=== PATIENT | male | born 1965 | race American Indian/Alaskan Native ===

== ENCOUNTER 2021-05-30 18:46 | Inpatient (IN) | payer MEDICAID ==
[2021-05-30] MEDS ORDERED: SODIUM CHLORIDE 0.9% 1000 ML 1,000 ML IV ONE (19:40)
--- NOTE | 2021-05-30 19:49 | Emergency Department Report ---
HPI - General Chief Complaint: Altered Mental Status Time Seen by Provider: 05/30/21 19:23 - HPI HPI: This is a 56-year-old male who is unknown to myself in this emergency department who presents to the emergency department for evaluation of altered mental status. This patient is a "adams of the state" secondary to some type of psychiatric history and the guardian, Gina, says that she thinks he also has some level of mental retardation. However, up to 2 weeks ago the patient was ambulatory and conversive and able to take care of all of his ADLs. The patient started having a change in his mental status and was sent to [facility] for evaluation. Some paperwork from [facility] has a problem list that includes sepsis, colitis, bladder infection, acute kidney injury, hypocalcemia, urinary retention, hypokalemia. The patient was discharged today from that hospital and was supposed to go to [facility]. However, it sounds like there was a miscommunication involving the patient's medical status and current abilities as that is a facility for assisted living or partial care, and the patient requires total care. He is currently AAO x1. ED Past Medical Hx - Social History Smoking Status: Unknown if ever smoked ED Review of Systems ROS: Stated complaint: MEDICAL EVAL Other details as noted in HPI Comment: Unobtainable due to pts medical conditions Physical Exam - Physical Exam Vital Signs: Vital Signs 05/30/21 05/30/21 05/30/21 19:11 19:16 19:24 Temperature 99.1 F Pulse Rate 107 H 106 H 104 H Respiratory 17 20 17 Rate Blood Pressure 138/82 138/82 Blood Pressure 138/82 [Left] O2 Sat by Pulse 94 94 Oximetry 05/30/21 05/30/21 19:30 19:36 Temperature 98.3 F Pulse Rate 101 H 101 H Respiratory 17 16 Rate Blood Pressure 151/85 Blood Pressure 151/85 [Left] O2 Sat by Pulse 94 95 Oximetry Physical Exam: GENERAL: The patient is ill-appearing. HENT: Normocephalic. Atraumatic. Patient has moist mucous membranes. EYES: Extraocular motions are intact. NECK: Supple. Trachea is midline. CHEST/LUNGS: Clear to auscultation. There is no respiratory distress noted. HEART/CARDIOVASCULAR: Regular. There is no tachycardia. There is no murmur. ABDOMEN: Abdomen is soft, nontender. Patient has normal bowel sounds. There is no abdominal distention. SKIN: Skin is warm and dry. NEURO: Patient is awake and cooperative, but confused. AAO x1 to name only. Follows commands. Withdraws from painful stimuli. MUSCULOSKELETAL: There is no tenderness or deformity. : Brower catheter in place. ED Course Vital Signs 05/30/21 05/30/21 05/30/21 19:11 19:16 19:24 Temperature 99.1 F Pulse Rate 107 H 106 H 104 H Respiratory 17 20 17 Rate Blood Pressure 138/82 138/82 Blood Pressure 138/82 [Left] O2 Sat by Pulse 94 94 Oximetry 05/30/21 05/30/21 19:30 19:36 Temperature 98.3 F Pulse Rate 101 H 101 H Respiratory 17 16 Rate Blood Pressure 151/85 Blood Pressure 151/85 [Left] O2 Sat by Pulse 94 95 Oximetry ED Medical Decision Making - Lab Data Result diagrams: 05/30/21 19:51 05/30/21 19:51 Lab Results 05/30/21 05/30/21 05/30/21 Range/Units 19:51 19:51 19:51 WBC 3.5 L (4.5-11.0) K/mm3 RBC 3.21 L (3.65-5.03) M/mm3 Hgb 9.6 L (11.8-15.2) gm/dl Hct 28.4 L (35.5-45.6) % MCV 88 (84-94) fl MCH 30 (28-32) pg MCHC 34 (32-34) % RDW 18.9 H (13.2-15.2) % Plt Count 161 (140-440) K/mm3 Lymph % (Auto) 32.5 (13.4-35.0) % [place] % (Auto) 7.4 H (0.0-7.3) % Eos % (Auto) 0.0 (0.0-4.3) % Baso % (Auto) 1.6 (0.0-1.8) % Lymph # (Auto) 1.1 L (1.2-5.4) K/mm3 [place] # (Auto) 0.3 (0.0-0.8) K/mm3 Eos # (Auto) 0.0 (0.0-0.4) K/mm3 Baso # (Auto) 0.1 (0.0-0.1) K/mm3 Seg Neutrophils % 58.5 (40.0-70.0) % Seg Neutrophils # 2.0 (1.8-7.7) K/mm3 PT 13.4 (12.2-14.9) Sec. INR 0.97 (0.87-1.13) Sodium 138 (137-145) mmol/L Potassium 3.0 L (3.6-5.0) mmol/L Chloride 100.6 (98-107) mmol/L Carbon Dioxide 33 H (22-30) mmol/L Anion Gap 7 mmol/L BUN 8 L (9-20) mg/dL Creatinine 0.2 L (0.8-1.3) mg/dL Estimated GFR > 60 ml/min BUN/Creatinine Ratio 40 % Glucose 107 H (75-100) mg/dL Lactic Acid (0.7-2.0) mmol/L Calcium 7.9 L (8.4-10.2) mg/dL Total Bilirubin 0.20 (0.1-1.2) mg/dL AST 21 (5-40) units/L ALT 28 (7-56) units/L Alkaline Phosphatase 60 (35-129) units/L Ammonia (25-60) umol/L Total Creatine Kinase 33 L (55-170) units/L Troponin T < 0.010 (0.00-0.029) ng/mL NT-Pro-B Natriuret Pep (0-900) pg/mL Total Protein 4.7 L (6.3-8.2) g/dL Albumin 2.1 L (3.9-5) g/dL Albumin/Globulin Ratio 0.8 % TSH (0.270-4.200) mlU/mL Plasma/Serum Alcohol (0-0.07) % 05/30/21 05/30/21 05/30/21 Range/Units 19:51 19:51 19:51 WBC (4.5-11.0) K/mm3 RBC (3.65-5.03) M/mm3 Hgb (11.8-15.2) gm/dl Hct (35.5-45.6) % MCV (84-94) fl MCH (28-32) pg MCHC (32-34) % RDW (13.2-15.2) % Plt Count (140-440) K/mm3 Lymph % (Auto) (13.4-35.0) % [place] % (Auto) (0.0-7.3) % Eos % (Auto) (0.0-4.3) % Baso % (Auto) (0.0-1.8) % Lymph # (Auto) (1.2-5.4) K/mm3 [place] # (Auto) (0.0-0.8) K/mm3 Eos # (Auto) (0.0-0.4) K/mm3 Baso # (Auto) (0.0-0.1) K/mm3 Seg Neutrophils % (40.0-70.0) % Seg Neutrophils # (1.8-7.7) K/mm3 PT (12.2-14.9) Sec. INR (0.87-1.13) Sodium (137-145) mmol/L Potassium (3.6-5.0) mmol/L Chloride (98-107) mmol/L Carbon Dioxide (22-30) mmol/L Anion Gap mmol/L BUN (9-20) mg/dL Creatinine (0.8-1.3) mg/dL Estimated GFR ml/min BUN/Creatinine Ratio % Glucose (75-100) mg/dL Lactic Acid 0.50 L (0.7-2.0) mmol/L Calcium (8.4-10.2) mg/dL Total Bilirubin (0.1-1.2) mg/dL AST (5-40) units/L ALT (7-56) units/L Alkaline Phosphatase (35-129) units/L Ammonia 34.0 (25-60) umol/L Total Creatine Kinase (55-170) units/L Troponin T (0.00-0.029) ng/mL NT-Pro-B Natriuret Pep (0-900) pg/mL Total Protein (6.3-8.2) g/dL Albumin (3.9-5) g/dL Albumin/Globulin Ratio % TSH 23.490 H (0.270-4.200) mlU/mL Plasma/Serum Alcohol (0-0.07) % 05/30/21 05/30/21 Range/Units 19:51 19:51 WBC (4.5-11.0) K/mm3 RBC (3.65-5.03) M/mm3 Hgb (11.8-15.2) gm/dl Hct (35.5-45.6) % MCV (84-94) fl MCH (28-32) pg MCHC (32-34) % RDW (13.2-15.2) % Plt Count (140-440) K/mm3 Lymph % (Auto) (13.4-35.0) % [place] % (Auto) (0.0-7.3) % Eos % (Auto) (0.0-4.3) % Baso % (Auto) (0.0-1.8) % Lymph # (Auto) (1.2-5.4) K/mm3 [place] # (Auto) (0.0-0.8) K/mm3 Eos # (Auto) (0.0-0.4) K/mm3 Baso # (Auto) (0.0-0.1) K/mm3 Seg Neutrophils % (40.0-70.0) % Seg Neutrophils # (1.8-7.7) K/mm3 PT (12.2-14.9) Sec. INR (0.87-1.13) Sodium (137-145) mmol/L Potassium (3.6-5.0) mmol/L Chloride (98-107) mmol/L Carbon Dioxide (22-30) mmol/L Anion Gap mmol/L BUN (9-20) mg/dL Creatinine (0.8-1.3) mg/dL Estimated GFR ml/min BUN/Creatinine Ratio % Glucose (75-100) mg/dL Lactic Acid (0.7-2.0) mmol/L Calcium (8.4-10.2) mg/dL Total Bilirubin (0.1-1.2) mg/dL AST (5-40) units/L ALT (7-56) units/L Alkaline Phosphatase (35-129) units/L Ammonia (25-60) umol/L Total Creatine Kinase (55-170) units/L Troponin T (0.00-0.029) ng/mL NT-Pro-B Natriuret Pep 185.5 (0-900) pg/mL Total Protein (6.3-8.2) g/dL Albumin (3.9-5) g/dL Albumin/Globulin Ratio % TSH (0.270-4.200) mlU/mL Plasma/Serum Alcohol < 0.01 (0-0.07) % - Radiology Data Radiology results: report reviewed CHEST 1 VIEW INDICATION / CLINICAL INFORMATION: Altered mental status. FINDINGS: SUPPORT DEVICES: None. HEART / MEDIASTINUM: No significant abnormality. LUNGS / PLEURA: Mild interstitial edema with small pleural effusions. NONENHANCED CT SCAN OF THE HEAD: INDICATION / CLINICAL INFORMATION: 56 years Male; Altered mental status. TECHNIQUE: Routine CT head without contrast. All CT scans at this location are performed using CT dose reduction for ALARA by means of automated exposure control. COMPARISON: None. FINDINGS: BRAIN / INTRACRANIAL CONTENTS: No acute hemorrhage, mass effect, midline shift, hydrocephalus, or acute, large territorial infarct. No chronic infarct or focal atrophy. Normal brain volume and ventricular/sulcal size for age. No significant white matter abnormality. CRANIOCERVICAL JUNCTION: No significant abnormality. ORBITS: No significant abnormality of visualized orbits. SINUSES / MASTOIDS: No significant abnormality of the visualized paranasal sinuses or mastoid air cells. ADDITIONAL FINDINGS: None. IMPRESSION: No focal parenchymal lesion - Medical Decision Making This patient presents to the emergency department after he was discharged from another hospital and was sent to an adult care facility. However, this adult care facility is not capable of taking care of this patient as he needs total care at this time. After speaking with the patient's guardian, this is a change in the patient's mentation and ability from about 2 weeks ago. On examination today the patient is confused, AAO x1, to name only. However the patient does answer questions, follows some commands. CT scan of the head without contrast did not show any hemorrhage, large vessel occlusion, or any other acute process. Chest x-ray shows some mild pleural effusion and interstitial edema. The patient's labs show some anemia with a hemoglobin of about 9.5, hypokalemia, hypothyroidism. Patient will be admitted to the hospital for further evaluation and treatment of his accepted for admission by the hospitalist, Dr. Woodson. Critical Care Time: No Critical care attestation.: If time is entered above; I have spent that time in minutes in the direct care of this critically ill patient, excluding procedure time. ED Disposition Clinical Impression: Encephalopathy acute, Hypokalemia Altered mental status Qualifiers: Altered mental status type: unspecified Qualified Code(s): R41.82 - Altered mental status, unspecified Hypothyroid Qualifiers: Hypothyroidism type: unspecified Qualified Code(s): E03.9 - Hypothyroidism, unspecified Disposition: DC-09 OP ADMIT IP TO THIS HOSP Is pt being admited?: Yes Condition: Serious Time of Disposition: 21:38
[2021-05-30 20:01] LABS: Basophils # (Auto) 0.1 K/mm3 (0.0-0.1); Basophils % (Auto) 1.6 % (0.0-1.8); Hematocrit 28.4 % (35.5-45.6); Hemoglobin 9.6 gm/dl (11.8-15.2); Lymphocytes # (Auto) 1.1 K/mm3 (1.2-5.4); Lymphocytes % (Auto) 32.5 % (13.4-35.0); Mean Corpuscular HGB Conc 34 % (32-34); Mean Corpuscular Volume 88 fl (84-94); Monocytes # (Auto) 0.3 K/mm3 (0.0-0.8); Monocytes % (Auto) 7.4 % (0.0-7.3); Platelet Count 161 K/mm3 (140-440); Red Blood Count 3.21 M/mm3 (3.65-5.03); Red Cell Distribution Width 18.9 % (13.2-15.2)
--- NOTE | 2021-05-30 20:08 | XRay Report ---
CHEST 1 VIEW INDICATION / CLINICAL INFORMATION: Altered mental status. FINDINGS: SUPPORT DEVICES: None. HEART / MEDIASTINUM: No significant abnormality. LUNGS / PLEURA: Mild interstitial edema with small pleural effusions. Signer Name: Vadim Boyer MD Signed: 05/30/2021 8:03 PM Workstation Name: [id number]
[2021-05-30 20:12] LABS: INR 0.97 (0.87-1.13)
[2021-05-30 20:28] LABS: Alanine Aminotransferase 28 units/L (7-56); Albumin 2.1 g/dL (3.9-5); Blood Urea Nitrogen 8 mg/dL (9-20); Calcium 7.9 mg/dL (8.4-10.2); Hemolysis Index 2
[2021-05-30 20:29] LABS: BUN/Creatinine Ratio 40
--- NOTE | 2021-05-30 20:54 | Cat Scan Report ---
NONENHANCED CT SCAN OF THE HEAD: INDICATION / CLINICAL INFORMATION: 56 years Male; Altered mental status. TECHNIQUE: Routine CT head without contrast. All CT scans at this location are performed using CT dos e reduction for ALARA by means of automated exposure control. COMPARISON: None. FINDINGS: BRAIN / INTRACRANIAL CONTENTS: No acute hemorrhage, mass effect, midline shift, hydrocephalus, or acu te, large territorial infarct. No chronic infarct or focal atrophy. Normal brain volume and ventricul ar/sulcal size for age. No significant white matter abnormality. CRANIOCERVICAL JUNCTION: No significant abnormality. ORBITS: No significant abnormality of visualized orbits. SINUSES / MASTOIDS: No significant abnormality of the visualized paranasal sinuses or mastoid air giovanni ls. ADDITIONAL FINDINGS: None. IMPRESSION: No focal parenchymal lesion Signer Name: Sanchez Bowie MD Signed: 05/30/2021 8:49 PM Workstation Name: [id number]
[2021-05-30] MEDS ORDERED: ONDANSETRON 4 MG/2 ML INJ IV PRN ×2 (21:46→21:55)
[2021-05-30] MEDS ORDERED: HYDROmorphone 1 MG/1 ML INJ IV PRN (21:55)
[2021-05-30] MEDS ORDERED: ACETAMINOPHEN 325 MG TAB PO PRN (21:55)
[2021-05-30] MEDS ORDERED: oxyCODONE /ACETAMINOPHEN 5-325MG TAB PO PRN (21:55)
[2021-05-30] MEDS: POTASSIUM CHLORIDE 10 MEQ 10 MEQ/100 ML BAG IV SCH (21:58)
--- NOTE | 2021-05-30 22:02 | History and Physical Report ---
History of Present Illness Date of examination: 05/30/21 Date of admission: 05/30/2021 Chief complaint: Altered mental status History of present illness: 56-year-old male with unknown past medical history was brought to the emergency room because of altered mental status. This patient is a "[place]ams of the state" secondary to some type of psychiatric history and the guardian, Gina, says that she thinks he also has some level of mental retardation. However, up to 2 weeks ago the patient was ambulatory and conversive and able to take care of all of his ADLs. The patient started having a change in his mental status and was sent to [facility] for evaluation. Some paperwork from [facility] has a problem list that includes sepsis, colitis, bladder infection, acute kidney injury, hypocalcemia, urinary retention, hypokalemia. The patient was discharged today from that hospital and was supposed to go to [facility]. However, it sounds like there was a miscommunication involving the patient's medical status and current abilities as that is a facility for assisted living or partial care, and the patient requires total care. He is cu rrently AAO x1. In the emergency room initial CT scan of the head shows no focal parenchymal lesion. Also potassium is 3.0, TSH 23.490 Past History Past Medical History: other (Psychiatric history) Medications and Allergies Allergies Allergy/AdvReac Type Severity Reaction Status Date / Time No Known Allergies Allergy Unverified 05/30/21 21:07 Active Meds: Active Medications Acetaminophen (Acetaminophen 325 Mg Tab) 650 mg PO Q4H PRN PRN Reason: Pain MILD(1-3)/Fever >100.5/[place] Acetaminophen (Acetaminophen 325 Mg Tab) 650 mg PO Q4H PRN PRN Reason: Pain MILD(1-3)/Fever >100.5/[place] Heparin Sodium (Porcine) (Heparin 5,000 Unit/1 Ml Vial) 5,000 unit SUB-Q Q12HR NEETU Hydromorphone HCl (Hydromorphone 1 Mg/1 Ml Inj) 0.5 mg IV Q3H PRN PRN Reason: Pain , Severe (7-10) Sodium Chloride (Nacl 0.9% 1000 Ml) 1,000 mls @ 125 mls/hr IV ONCE ONE Stop: 05/31/21 03:39 Last Admin: 05/30/21 20:53 Dose: 125 mls/hr Documented by: Potassium Chloride (Kcl 10meq/100ml) 10 meq in 100 mls @ 100 mls/hr IV Q1H NEETU Stop: 05/30/21 23:59 Ondansetron HCl (Ondansetron 4 Mg/2 Ml Inj) 4 mg IV Q8H PRN PRN Reason: Nausea And Vomiting Ondansetron HCl (Ondansetron 4 Mg/2 Ml Inj) 4 mg IV Q8H PRN PRN Reason: Nausea And Vomiting Oxycodone/Acetaminophen (Oxycodone /Acetaminophen 5-325mg Tab) 1 tab PO Q6H PRN PRN Reason: Pain, Moderate (4-6) Sodium Chloride (Sodium Chloride 0.9% 10 Ml Flush Syringe) 10 ml IV BID NEETU Sodium Chloride (Sodium Chloride 0.9% 10 Ml Flush Syringe) 10 ml IV PRN PRN PRN Reason: LINE FLUSH Sodium Chloride (Sodium Chloride 0.9% 10 Ml Flush Syringe) 10 ml IV BID NEETU Sodium Chloride (Sodium Chloride 0.9% 10 Ml Flush Syringe) 10 ml IV PRN PRN PRN Reason: LINE FLUSH Sodium Chloride (Sodium Chloride 0.9% 10 Ml Flush Syringe) 10 ml IV BID NEETU Sodium Chloride (Sodium Chloride 0.9% 10 Ml Flush Syringe) 10 ml IV PRN PRN PRN Reason: LINE FLUSH Review of Systems Neurological: change in mentation Exam - Constitutional Vitals: Temp Pulse Resp BP Pulse Ox 98.3 F 103 H 24 148/90 93 05/30/21 19:36 05/30/21 20:46 05/30/21 20:46 05/30/21 20:46 05/30/21 20:46 General appearance: Present: no acute distress, well-nourished - EENT Eyes: Present: PERRL ENT: hearing intact, clear oral mucosa - Neck Neck: Present: supple, normal ROM - Respiratory Respiratory effort: normal Respiratory: bilateral: CTA - Cardiovascular Heart Sounds: Present: S1 & S2. Absent: rub, click - Extremities Extremities: pulses symmetrical, No edema Peripheral Pulses: within normal limits - Abdominal General gastrointestinal: Present: soft, non-tender, non-distended, normal bowel sounds Male genitourinary: Present: normal - Integumentary Integumentary: Present: clear, warm, dry - Musculoskeletal Musculoskeletal: gait normal, strength equal bilaterally - Psychiatric Psychiatric: appropriate mood/affect - Neurologic Neurologic: CNII-XII intact, moves all extremities, other (Patient is AAO x1) HEART Score - HEART Score Troponin: Troponin T < 0.010 ng/mL (0.00-0.029) 05/30/21 19:51 Results - Labs CBC & Chem 7: 05/30/21 19:51 05/30/21 19:51 Labs: Laboratory Last Values WBC 3.5 K/mm3 (4.5-11.0) L 05/30/21 19:51 RBC 3.21 M/mm3 (3.65-5.03) L 05/30/21 19:51 Hgb 9.6 gm/dl (11.8-15.2) L 05/30/21 19:51 Hct 28.4 % (35.5-45.6) L 05/30/21 19:51 MCV 88 fl (84-94) 05/30/21 19:51 MCH 30 pg (28-32) 05/30/21 19:51 MCHC 34 % (32-34) 05/30/21 19:51 RDW 18.9 % (13.2-15.2) H 05/30/21 19:51 Plt Count 161 K/mm3 (140-440) 05/30/21 19:51 Lymph % (Auto) 32.5 % (13.4-35.0) 05/30/21 19:51 [place] % (Auto) 7.4 % (0.0-7.3) H 05/30/21 19:51 Eos % (Auto) 0.0 % (0.0-4.3) 05/30/21 19:51 Baso % (Auto) 1.6 % (0.0-1.8) 05/30/21 19:51 Lymph # (Auto) 1.1 K/mm3 (1.2-5.4) L 05/30/21 19:51 [place] # (Auto) 0.3 K/mm3 (0.0-0.8) 05/30/21 19:51 Eos # (Auto) 0.0 K/mm3 (0.0-0.4) 05/30/21 19:51 Baso # (Auto) 0.1 K/mm3 (0.0-0.1) 05/30/21 19:51 Seg Neutrophils % 58.5 % (40.0-70.0) 05/30/21 19:51 Seg Neutrophils # 2.0 K/mm3 (1.8-7.7) 05/30/21 19:51 PT 13.4 Sec. (12.2-14.9) 05/30/21 19:51 INR 0.97 (0.87-1.13) 05/30/21 19:51 Sodium 138 mmol/L (137-145) 05/30/21 19:51 Potassium 3.0 mmol/L (3.6-5.0) L 05/30/21 19:51 Chloride 100.6 mmol/L (98-107) 05/30/21 19:51 Carbon Dioxide 33 mmol/L (22-30) H 05/30/21 19:51 Anion Gap 7 mmol/L 05/30/21 19:51 BUN 8 mg/dL (9-20) L 05/30/21 19:51 Creatinine 0.2 mg/dL (0.8-1.3) L 05/30/21 19:51 Estimated GFR > 60 ml/min 05/30/21 19:51 BUN/Creatinine Ratio 40 % 05/30/21 19:51 Glucose 107 mg/dL (75-100) H 05/30/21 19:51 Lactic Acid 0.50 mmol/L (0.7-2.0) L 05/30/21 19:51 Calcium 7.9 mg/dL (8.4-10.2) L 05/30/21 19:51 Total Bilirubin 0.20 mg/dL (0.1-1.2) 05/30/21 19:51 AST 21 units/L (5-40) 05/30/21 19:51 ALT 28 units/L (7-56) 05/30/21 19:51 Alkaline Phosphatase 60 units/L (35-129) 05/30/21 19:51 Ammonia 34.0 umol/L (25-60) 05/30/21 19:51 Total Creatine Kinase 33 units/L (55-170) L 05/30/21 19:51 Troponin T < 0.010 ng/mL (0.00-0.029) 05/30/21 19:51 NT-Pro-B Natriuret Pep 185.5 pg/mL (0-900) 05/30/21 19:51 Total Protein 4.7 g/dL (6.3-8.2) L 05/30/21 19:51 Albumin 2.1 g/dL (3.9-5) L 05/30/21 19:51 Albumin/Globulin Ratio 0.8 % 05/30/21 19:51 TSH 23.490 mlU/mL (0.270-4.200) H 05/30/21 19:51 Plasma/Serum Alcohol < 0.01 % (0-0.07) 05/30/21 19:51 - Imaging and Cardiology Chest x-ray: report reviewed CT Scan - head: report reviewed Assessment and Plan VTE prophylaxis?: Chemical Plan of care discussed with patient/family: Yes - Patient Problems (1) Acute metabolic encephalopathy Status: Acute Plan to address problem: Admit the patient to the medical floor telemetry. Put the patient on cardiac diet. Oxygen via nasal catheter per minute. DuoNeb by nebulizer every 4 hours as needed. We will monitor the patient closely. emu farm worker evaluation for placement and discharge planning (2) Hypokalemia Status: Acute Plan to address problem: Potassium 40 mEq every 4 hours x2 dose. Recheck BMP in the morning (3) Hypothyroid Status: Acute Plan to address problem: Will start Synthroid 25 mcg p.o. daily. We will monitor the patient closely. Outpatient follow-up with endocrinology (4) DVT prophylaxis Status: Acute Plan to address problem: Heparin 5000 units subcu every 8 hours for DVT prophylaxis. Pepcid 20 mg p.o. twice daily for GI prophylaxis. Patient is a full code
[2021-05-31] MEDS: POTASSIUM CHLORIDE 10 MEQ 10 MEQ/100 ML BAG IV SCH ×2 (00:07→00:47)
[2021-05-31] MEDS: HEPARIN 5,000 UNIT/1 ML VIAL SUB-Q SCH ×3 (00:08→22:29)
[2021-05-31] MEDS: POTASSIUM CHLORIDE ER 20 MEQ TAB PO SCH ×2 (00:11→04:07)
[2021-05-31 05:46] LABS: Basophils % (Auto) 0.4 % (0.0-1.8); Hematocrit 30.6 % (35.5-45.6); Hemoglobin 10.3 gm/dl (11.8-15.2); Lymphocytes # (Auto) 1.2 K/mm3 (1.2-5.4); Lymphocytes % (Auto) 33.5 % (13.4-35.0); Mean Corpuscular HGB Conc 34 % (32-34); Mean Corpuscular Volume 90 fl (84-94); Monocytes # (Auto) 0.3 K/mm3 (0.0-0.8); Monocytes % (Auto) 9.1 % (0.0-7.3); Platelet Count 148 K/mm3 (140-440); Red Blood Count 3.39 M/mm3 (3.65-5.03); Red Cell Distribution Width 19.4 % (13.2-15.2)
[2021-05-31] MEDS: LEVOTHYROXINE 25 MCG TAB PO SCH (05:52)
[2021-05-31 05:58] LABS: Alanine Aminotransferase 26 units/L (7-56); Albumin 2.4 g/dL (3.9-5); Blood Urea Nitrogen 7 mg/dL (9-20); Calcium 8.1 mg/dL (8.4-10.2); Hemolysis Index 1
[2021-05-31 05:59] LABS: BUN/Creatinine Ratio 35
[2021-05-31] MEDS: ACETAMINOPHEN 325 MG TAB PO PRN (09:21)
--- NOTE | 2021-05-31 14:20 | Progress Note ---
Assessment and Plan -- Acute metabolic encephalopathy Etiology unknown, patient possibly has underlying severe dementia CT head without any acute process Continue supportive care, speech eval We will monitor the patient closely. salvage worker evaluation for placement and discharge planning -- Hypokalemia s/p Potassium 40 mEq every 4 hours x2 dose. Follow BMP -- Hypothyroid started Synthroid 25 mcg p.o. daily. We will monitor the patient closely. Outpatient follow-up with endocrinology --DVT prophylaxis Heparin 5000 units subcu every 8 hours for DVT prophylaxis. Pepcid 20 mg p.o. twice daily for GI prophylaxis. -- Patient is a full code Daily clinical course: 05/31/21: Patient appears to be chronically debilitated with generalized weakness and disoriented. Will consult speech therapy, PT OT eval. microsoft dynamics manager architect to arrange for placement, patient is [facility]. Subjective Date of service: 05/31/21 Interval history: Patient seen and examined. Medical records and medication list reviewed. No acute event overnight noted by the RN. Patient appears very lethargic and confused, tolerating diet Discussed plan of care at bedside with CM and RN. Objective - Exam Narrative Exam: General appearance: Present: no acute distress, confused and lethargic - EENT Eyes: Present: PERRL ENT: hearing intact, clear oral mucosa - Neck Neck: Present: supple, normal ROM - Respiratory Respiratory effort: normal Respiratory: bilateral: CTA - Cardiovascular Heart Sounds: Present: S1 & S2. Absent: rub, click - Extremities Extremities: pulses symmetrical, No edema Peripheral Pulses: within normal limits - Abdominal General gastrointestinal: Present: soft, non-tender, non-distended, normal bowel sounds Male genitourinary: Present: normal - Integumentary Integumentary: Present: clear, warm, dry - Musculoskeletal Musculoskeletal: gait normal, strength equal bilaterally - Psychiatric Psychiatric: appropriate mood/affect - Neurologic Neurologic: CNII-XII intact, moves all extremities, other (Patient is AAO x1) - Constitutional Vitals: Vital Signs - 12hr 05/31/21 05/31/21 05/31/21 03:27 04:00 08:07 Temperature 98.9 F 99.2 F Pulse Rate 90 99 H 109 H Respiratory 18 19 Rate Blood Pressure 143/79 153/90 O2 Sat by Pulse 92 91 Oximetry 05/31/21 12:00 Temperature Pulse Rate 107 H Respiratory Rate Blood Pressure O2 Sat by Pulse Oximetry - Labs CBC & Chem 7: 05/31/21 05:17 05/31/21 05:17 Labs: Abnormal lab results 05/30/21 05/30/21 05/30/21 Range/Units 19:51 19:51 19:51 WBC 3.5 L (4.5-11.0) K/mm3 RBC 3.21 L (3.65-5.03) M/mm3 Hgb 9.6 L (11.8-15.2) gm/dl Hct 28.4 L (35.5-45.6) % RDW 18.9 H (13.2-15.2) % Haakon % (Auto) 7.4 H (0.0-7.3) % Lymph # (Auto) 1.1 L (1.2-5.4) K/mm3 Potassium 3.0 L (3.6-5.0) mmol/L Carbon Dioxide 33 H (22-30) mmol/L BUN 8 L (9-20) mg/dL Creatinine 0.2 L (0.8-1.3) mg/dL Glucose 107 H (75-100) mg/dL Lactic Acid 0.50 L (0.7-2.0) mmol/L Calcium 7.9 L (8.4-10.2) mg/dL Total Creatine Kinase 33 L (55-170) units/L Total Protein 4.7 L (6.3-8.2) g/dL Albumin 2.1 L (3.9-5) g/dL TSH (0.270-4.200) mlU/mL 05/30/21 05/31/21 05/31/21 Range/Units 19:51 05:17 05:17 WBC 3.6 L (4.5-11.0) K/mm3 RBC 3.39 L (3.65-5.03) M/mm3 Hgb 10.3 L (11.8-15.2) gm/dl Hct 30.6 L (35.5-45.6) % RDW 19.4 H (13.2-15.2) % [place]ak[place] % (Auto) 9.1 H (0.0-7.3) % Lymph # (Auto) (1.2-5.4) K/mm3 Potassium 3.4 L (3.6-5.0) mmol/L Carbon Dioxide 34 H (22-30) mmol/L BUN 7 L (9-20) mg/dL Creatinine 0.2 L (0.8-1.3) mg/dL Glucose (75-100) mg/dL Lactic Acid (0.7-2.0) mmol/L Calcium 8.1 L (8.4-10.2) mg/dL Total Creatine Kinase (55-170) units/L Total Protein 4.8 L (6.3-8.2) g/dL Albumin 2.4 L (3.9-5) g/dL TSH 23.490 H (0.270-4.200) mlU/mL HEART Score - HEART Score Troponin: Troponin T < 0.010 ng/mL (0.00-0.029) 05/30/21 19:51
[2021-05-31] MEDS: D5W/0.9% NACL 1,000 ML IV SCH (16:53)
[2021-06-01] MEDS: D5W/0.9% NACL 1,000 ML IV SCH ×2 (05:33→17:14)
[2021-06-01] MEDS: LEVOTHYROXINE 25 MCG TAB PO SCH (05:33)
--- NOTE | 2021-06-01 10:24 | Electrocardiograph Report ---
[facility] Test Date: 2021-06-01 Test Time: 07:14:42 Pat Name: JASON PARKER Department: Room: A454 1 Gender: M Reports Developer: JAIR : 1965 Requested By: DENNYS LOCKHRAT Order Number: [id number] Reading MD: Jose R Hernandez Measurements Intervals Wiley Rate: 101 P: 45 FL: 132 QRS: 70 QRSD: 78 T: 76 QT: 313 QTc: 405 Interpretive Statements Sinus tachycardia Low voltage, precordial leads No previous ECG available for comparison Electronically Signed On 06-01-2021 10:24:17 EDT by Jose R Hernandez
[2021-06-01] MEDS: HEPARIN 5,000 UNIT/1 ML VIAL SUB-Q SCH ×2 (10:37→22:40)
[2021-06-01 10:53] LABS: Blood Urea Nitrogen 7 mg/dL (9-20); Calcium 7.9 mg/dL (8.4-10.2); Hemolysis Index 3
[2021-06-01 10:54] LABS: BUN/Creatinine Ratio 35
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
[2021-06-01] MEDS ORDERED: LEVOTHYROXINE 25 MCG TAB PO SCH (14:09)
[2021-06-01] MEDS: ACETAMINOPHEN 325 MG TAB PO PRN (17:14)
[2021-06-02] MEDS: LEVOTHYROXINE 25 MCG TAB PO SCH (06:34)
[2021-06-02] MEDS: D5W/0.9% NACL 1,000 ML IV SCH (06:36)
[2021-06-02 06:58] LABS: Blood Urea Nitrogen 9 mg/dL (9-20); Calcium 7.7 mg/dL (8.4-10.2); Hemolysis Index 8
[2021-06-02 06:59] LABS: BUN/Creatinine Ratio 30
[2021-06-02] MEDS ORDERED: FUROSEMIDE 20 MG/2 ML INJ IV ONE (09:00)
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
[2021-06-02] MEDS: HEPARIN 5,000 UNIT/1 ML VIAL SUB-Q SCH (09:15)
[2021-06-02] MEDS: METOPROLOL TARTRATE 25 MG TAB PO SCH (09:16)
[2021-06-02] MEDS: POTASSIUM CHLORIDE 20 MEQ PACKET PO SCH (09:19)
[2021-06-02] MEDS: CALCIUM CARBONATE 1250 MG TAB PO SCH (09:19)
--- NOTE | 2021-06-02 10:15 | XRay Report ---
Chest single view INDICATION: Dyspnea IMPRESSION: Minimal bibasilar opacities. The heart size is normal. Signer Name: Vadim Boyer MD Signed: 06/02/2021 10:10 AM Workstation Name: [id number]
[2021-06-02] MEDS: FUROSEMIDE 20 MG/2 ML INJ IV SCH (17:22)
[2021-06-02] MEDS: ACETAMINOPHEN 325 MG TAB PO PRN (23:59)
[2021-06-03] MEDS: POTASSIUM CHLORIDE 20 MEQ PACKET PO SCH
[2021-06-03 01:53] LABS: Hematocrit 29.1 % (35.5-45.6); Hemoglobin 9.7 gm/dl (11.8-15.2); Mean Corpuscular HGB Conc 33 % (32-34); Mean Corpuscular Volume 90 fl (84-94); Platelet Count 166 K/mm3 (140-440); Red Blood Count 3.22 M/mm3 (3.65-5.03); Red Cell Distribution Width 19.6 % (13.2-15.2)
[2021-06-03] MEDS: cefTRIAXone/NS 2 GM/100 ML 2 GM/100 ML BAG IV SCH (03:38)
[2021-06-03 04:09] LABS: Blood Urea Nitrogen 10 mg/dL (9-20); Calcium 8.2 mg/dL (8.4-10.2); Hemolysis Index 6
[2021-06-03 04:13] LABS: BUN/Creatinine Ratio 50
[2021-06-03] MEDS: ACETAMINOPHEN 325 MG TAB PO PRN ×2 (06:13→21:46)
[2021-06-03] MEDS: FUROSEMIDE 20 MG/2 ML INJ IV SCH (06:13)
[2021-06-03] MEDS: LEVOTHYROXINE 25 MCG TAB PO SCH (06:14)
[2021-06-03] MEDS: METOPROLOL TARTRATE 25 MG TAB PO SCH ×3 (09:12→21:46)
[2021-06-03] MEDS: CALCIUM CARBONATE 1250 MG TAB PO SCH (09:13)
[2021-06-03] MEDS: HEPARIN 5,000 UNIT/1 ML VIAL SUB-Q SCH ×3 (09:13→21:45)
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
[2021-06-03 13:19] LABS: Bacteria,Urine 2+ /HPF (Negative); Bilirubin,Urine NEG (Negative); Blood,Urine SM (Negative); Color,Urine Yellow (Yellow); Mucus,Urine 2+ /HPF; Protein,Urine <15 mg/dL mg/dL (Negative); Urobilinogen,Urine < 2.0 mg/dL (<2.0)
[2021-06-04] MEDS: cefTRIAXone/NS 2 GM/100 ML 2 GM/100 ML BAG IV SCH (01:03)
[2021-06-04] MEDS: ACETAMINOPHEN 325 MG TAB PO PRN (05:33)
[2021-06-04] MEDS: LEVOTHYROXINE 25 MCG TAB PO SCH (05:34)
[2021-06-04 05:43] LABS: Hematocrit 31.5 % (35.5-45.6); Hemoglobin 10.4 gm/dl (11.8-15.2); Mean Corpuscular HGB Conc 33 % (32-34); Mean Corpuscular Volume 91 fl (84-94); Platelet Count 212 K/mm3 (140-440); Red Blood Count 3.46 M/mm3 (3.65-5.03)
[2021-06-04 05:44] LABS: Red Cell Distribution Width 20.4 % (13.2-15.2)
[2021-06-04 06:02] LABS: Blood Urea Nitrogen 10 mg/dL (9-20); Calcium 8.4 mg/dL (8.4-10.2); Hemolysis Index 2
[2021-06-04 06:12] LABS: BUN/Creatinine Ratio 50
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
[2021-06-04] MEDS: HEPARIN 5,000 UNIT/1 ML VIAL SUB-Q SCH ×2 (09:32→21:31)
[2021-06-04] MEDS: CALCIUM CARBONATE 1250 MG TAB PO SCH (09:32)
[2021-06-04] MEDS: METOPROLOL TARTRATE 25 MG TAB PO SCH ×2 (09:32→21:31)
[2021-06-04] MEDS ORDERED: LOPERAMIDE 2 MG CAP PO ONE (16:50)
[2021-06-04] MEDS: LOPERAMIDE 2 MG CAP PO PRN (21:32)
[2021-06-05] MEDS: cefTRIAXone/NS 2 GM/100 ML 2 GM/100 ML BAG IV SCH (00:37)
[2021-06-05] MEDS: LOPERAMIDE 2 MG CAP PO PRN (05:22)
[2021-06-05] MEDS: LEVOTHYROXINE 25 MCG TAB PO SCH (05:22)
[2021-06-05 05:43] LABS: Blood Urea Nitrogen 8 mg/dL (9-20); Calcium 8.4 mg/dL (8.4-10.2); Hemolysis Index 4
[2021-06-05 06:02] LABS: BUN/Creatinine Ratio 27
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
[2021-06-05] MEDS: METOPROLOL TARTRATE 25 MG TAB PO SCH ×2 (10:32→21:52)
[2021-06-05] MEDS: CALCIUM CARBONATE 1250 MG TAB PO SCH (10:32)
[2021-06-05] MEDS: HEPARIN 5,000 UNIT/1 ML VIAL SUB-Q SCH ×2 (10:33→21:55)
[2021-06-05] MEDS ORDERED: PALIPERIDONE PALMITATE 234 MG/1.5 ML SYRINGE IM SCH (13:00)
--- NOTE | 2021-06-05 17:22 | Magnetic Resonance Report ---
MRI THORACIC SPINE WITHOUT AND WITH CONTRAST INDICATION / CLINICAL INFORMATION: subacute paraplegia. TECHNIQUE: Multisequence, multiplanar images of the thoracic spine were obtained before and after 13 mL of Josie scan COMPARISON: None available. FINDINGS: ALIGNMENT: Normal thoracic kyphosis without significant scoliosis. VERTEBRAE:Old healed mild compression along the superior endplate of T5 (less than 20% height loss; m arrow signal restored; no bone edema; other thoracic vertebral bodies are normal VISUALIZED SPINAL CORD: No significant abnormality. INTERVERTEBRAL DISCS: No significant abnormality. No enhancing intradural lesion in the thoracic spine DEGENERATIVE FINDINGS: No significant degenerative findings. PARASPINAL SOFT TISSUES: No significant abnormality. ADDITIONAL FINDINGS: Bilateral pleural effusion IMPRESSION: Thoracic spinal cord is normal; no disc herniation Signer Name: Sanchez Bowie MD Signed: 06/05/2021 5:17 PM Workstation Name: [id number]
--- NOTE | 2021-06-05 17:25 | Magnetic Resonance Report ---
MRI LUMBAR SPINE WITHOUT AND WITH CONTRAST INDICATION / CLINICAL INFORMATION: subacute paraplegia. TECHNIQUE: Multisequence, multiplanar images of the lumbar spine were obtained before and after 13 mL of Clarisc an COMPARISON: None available. FINDINGS: Lumbosacral junction L5-S1 ALIGNMENT: Normal lumbar lordosis without significant scoliosis. VERTEBRAE:Normal marrow signal and vertebral body height for age. VISUALIZED SPINAL CORD: No significant abnormality. Conus ends at T12-L1 disc level [id number] ANALYSIS: T12-L1: Normal L1-2: No significant abnormality. L2-3: No significant abnormality. L3-4: No significant abnormality. L4-5: Disc height normal; mild desiccation; neuroforamina are normal L5-S1: No significant abnormality. PARASPINAL SOFT TISSUES: No significant abnormality. ADDITIONAL FINDINGS: None. IMPRESSION: No focal disc herniation, spinal canal stenosis or nerve root compression. Signer Name: Sanchez Bowie MD Signed: 06/05/2021 5:20 PM Workstation Name: [id number]
[2021-06-05] MEDS: risperiDONE 1 MG TAB PO SCH (22:40)
[2021-06-06] MEDS: cefTRIAXone/NS 2 GM/100 ML 2 GM/100 ML BAG IV SCH (01:14)
[2021-06-06] MEDS: LEVOTHYROXINE 25 MCG TAB PO SCH (05:33)
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
--- NOTE | 2021-06-06 09:06 | Consultation ---
History of Present Illness Consult date: 06/06/21 Reason for Consult: Paraplegia Chief complaint: Weakness History of present illness: 56 yo male who presents with recent admission for sepsis, colitis, bladder infection, acute kidney injury, hypocalcemia, urinary retention, hypokalemia and now presents with acute onset of bilateral leg weakness (non-progressive) 1 to 2 weeks ago. Notes no incontinence or neck/back pain. He denies headache, bilateral arm weakness, dysphagia, or blurred vision. Past History Past Medical History: other (Psychiatric history) Medications and Allergies Allergies Allergy/AdvReac Type Severity Reaction Status Date / Time No Known Allergies Allergy Unverified 05/30/21 21:07 Home Medications Medication Instructions Recorded Confirmed Last Taken Type Paliperidone Palmitate [Invega 234 mg IM QMONTH 06/05/21 06/05/21 05/06/21 00:00 History Sustenna] cloZAPine 1 tab PO 06/05/21 06/05/21 05/10/21 00:00 History cloZAPine [Clozaril] 1 tab PO DAILY 06/05/21 06/05/21 05/10/21 00:00 History risperiDONE [RisperDAL] 3 mg PO DAILY 06/05/21 06/05/21 05/10/21 00:00 History risperiDONE [RisperDAL] 4 mg PO 06/05/21 06/05/21 05/10/21 00:00 History Active Meds: Active Medications Acetaminophen (Acetaminophen 325 Mg Tab) 650 mg PO Q4H PRN PRN Reason: Pain MILD(1-3)/Fever >100.5/[place] Last Admin: 06/04/21 05:33 Dose: 650 mg Documented by: Calcium Carbonate/Glycine (Calcium Carbonate 1250 Mg Tab) 1,250 mg PO QDAY [facility] Last Admin: 06/05/21 10:32 Dose: 1,250 mg Documented by: Heparin Sodium (Porcine) (Heparin 5,000 Unit/1 Ml Vial) 5,000 unit SUB-Q Q12HR [facility] Last Admin: 06/05/21 21:55 Dose: 5,000 unit Documented by: Hydromorphone HCl (Hydromorphone 1 Mg/1 Ml Inj) 0.5 mg IV Q3H PRN PRN Reason: Pain , Severe (7-10) Ceftriaxone Sodium (Rocephin/Ns 2 Gm/100 Ml) 2 gm in 100 mls @ 200 mls/hr IV Q24H [facility]; Protocol Stop: 06/09/21 01:29 Last Admin: 06/06/21 01:14 Dose: 200 mls/hr Documented by: Levothyroxine Sodium (Levothyroxine 25 Mcg Tab) 25 mcg PO DAILY@0600 NEETU Last Admin: 06/06/21 05:33 Dose: 25 mcg Documented by: Loperamide HCl (Loperamide 2 Mg Cap) 2 mg PO Q2H PRN PRN Reason: Diarrhea Last Admin: 06/05/21 05:22 Dose: 2 mg Documented by: Metoprolol Tartrate (Metoprolol Tartrate 25 Mg Tab) 12.5 mg PO BID [facility] Last Admin: 06/05/21 21:52 Dose: 12.5 mg Documented by: Ondansetron HCl (Ondansetron 4 Mg/2 Ml Inj) 4 mg IV Q8H PRN PRN Reason: Nausea And Vomiting Last Admin: 06/04/21 13:52 Dose: 4 mg Documented by: Oxycodone/Acetaminophen (Oxycodone /Acetaminophen 5-325mg Tab) 1 tab PO Q6H PRN PRN Reason: Pain, Moderate (4-6) Risperidone (Risperidone 1 Mg Tab) 4 mg PO HS [facility] Last Admin: 06/05/21 22:40 Dose: 4 mg Documented by: Risperidone (Risperidone 3 Mg Tab) 3 mg PO QDAY [facility] Sodium Chloride (Sodium Chloride 0.9% 10 Ml Flush Syringe) 10 ml IV BID [facility] Last Admin: 06/05/21 10:33 Dose: 10 ml Documented by: Sodium Chloride (Sodium Chloride 0.9% 10 Ml Flush Syringe) 10 ml IV PRN PRN PRN Reason: LINE FLUSH Review of Systems All systems: negative Physical Examination - Vital Signs Vital Signs: Vital Signs Pulse Resp 107 H 17 05/30/21 19:11 05/30/21 19:11 - Physical Exam Narrative exam: Gen: nad, well-nourished; Head: normocephalic; Eyes: no gaze deviation; no ptosis; ENT: normal vocalization; CVS: warm and well-perfused; Pulm: no respiratory distress; GI: appears non-distended, protuberant; Ext: no cyanosis at distal extremities; Skin: no acute rash at distal extremities; Heme: no pathologic bruising at distal extremities; Neuro: alert, oriented to name, no dysarthria, no aphasia, CN 2 - PERRL, visual cuellar grossly intact, CN 3, 4, 6 - EOMI, CN 5 - facial sensation symmetric to light touch, CN 7 - facial movement symmetric, CN 8 - hearing grossly intact, CN 9, 10 - uvula midline, CN 11 - shrug symmetric, CN 12 - tongue midline; Motor - at least 3/5 at BUEs and at least 1-2/5 in all exts; Sensory - light touch sym metric, Cerebellar - fnf intact; Gait - deferred secondary to fall risk; Results - Laboratory Findings CBC and BMP: 06/04/21 04:24 06/05/21 04:22 Abnormal Lab Findings: Abnormal Labs 05/30/21 05/30/21 05/30/21 19:51 19:51 19:51 WBC 3.5 L RBC 3.21 L Hgb 9.6 L Hct 28.4 L RDW 18.9 H [place] % (Auto) 7.4 H Lymph # (Auto) 1.1 L Potassium 3.0 L Chloride Carbon Dioxide 33 H BUN 8 L Creatinine 0.2 L Glucose 107 H Lactic Acid 0.50 L Calcium 7.9 L Total Creatine Kinase 33 L Total Protein 4.7 L Albumin 2.1 L TSH Urine pH Urine WBC (Auto) 05/30/21 05/31/21 05/31/21 19:51 05:17 05:17 WBC 3.6 L RBC 3.39 L Hgb 10.3 L Hct 30.6 L RDW 19.4 H [place] % (Auto) 9.1 H Lymph # (Auto) Potassium 3.4 L Chloride Carbon Dioxide 34 H BUN 7 L Creatinine 0.2 L Glucose Lactic Acid Calcium 8.1 L Total Creatine Kinase Total Protein 4.8 L Albumin 2.4 L TSH 23.490 H Urine pH Urine WBC (Auto) 06/01/21 06/02/21 06/03/21 09:20 05:46 01:15 WBC RBC 3.22 L Hgb 9.7 L Hct 29.1 L RDW 19.6 H [place] % (Auto) Lymph # (Auto) Potassium 3.4 L 3.5 L Chloride Carbon Dioxide 35 H 34 H BUN 7 L Creatinine 0.2 L 0.3 L Glucose Lactic Acid Calcium 7.9 L 7.7 L Total Creatine Kinase Total Protein Albumin TSH Urine pH Urine WBC (Auto) 06/03/21 06/03/21 06/04/21 03:20 Unknown 04:24 WBC RBC 3.46 L Hgb 10.4 L Hct 31.5 L RDW 20.4 H [place] % (Auto) Lymph # (Auto) Potassium Chloride Carbon Dioxide 35 H BUN Creatinine 0.2 L Glucose Lactic Acid Calcium 8.2 L Total Creatine Kinase Total Protein Albumin TSH Urine pH 8.0 H Urine WBC (Auto) 32.0 H 06/04/21 06/05/21 04:24 04:22 WBC RBC Hgb Hct RDW [place] % (Auto) Lymph # (Auto) Potassium Chloride 97.2 L Carbon Dioxide 36 H 32 H BUN 8 L Creatinine 0.2 L 0.3 L Glucose Lactic Acid Calcium Total Creatine Kinase Total Protein Albumin TSH Urine pH Urine WBC (Auto) Assessment and Plan 56 yo male who presents with recent admission for sepsis, colitis, bladder infection, acute kidney injury, hypocalcemia, urinary retention, hypokalemia and now presents with acute onset of bilateral leg weakness (non-progressive) 1 to 2 weeks ago. Notes no incontinence or neck/back pain. He denies headache, bilateral arm weakness, dysphagia, or blurred vision. 1. Bilateral Arm Weakness - agree w/ mri brain/c-spine w/ wo contrast; confirm b12, tsh, ck levels. 2. Paraparesis - unremarkable MR T/L Spine; awaiting MR C Spine. 3. Critical Illness Neuropathy/Myopathy - if non-acute presentation (clinical history needs to be verified), needs to be in the differential, if this developed while the patient was septic. 4. If MRIs and serologies are unremarkable, recommend transfer of the patient to a facility for bedside neurology evaluation and w/ possible inpatient EMG- NCV. Harry Whitaker MD Neurology [id number]
[2021-06-06] MEDS: CALCIUM CARBONATE 1250 MG TAB PO SCH (09:07)
[2021-06-06] MEDS: METOPROLOL TARTRATE 25 MG TAB PO SCH ×2 (09:07→21:32)
[2021-06-06] MEDS: HEPARIN 5,000 UNIT/1 ML VIAL SUB-Q SCH ×2 (09:07→21:32)
[2021-06-06] MEDS: risperiDONE 3 MG TAB PO SCH ×3 (09:43→10:25)
--- NOTE | 2021-06-06 15:27 | Magnetic Resonance Report ---
MRI CERVICAL SPINE 06/06/2021 INDICATION / CLINICAL INFORMATION: subacute paraplegia. COMPARISON: None available. FINDINGS: GENERAL OBSERVATIONS: Unenhanced and enhanced MR images of the cervical spine were obtained. There is some mild patient motion artifact present on these images. There is no evidence of acute abnormality. There is no evidence of spinal cord compression or intrins ic spinal cord abnormality. Postcontrast images demonstrate no abnormal contrast enhancement. [id number] ANALYSIS: C7-T1: Unremarkable. C6-7: Unremarkable. C5-6: Minimal diffuse disc bulging. C4-5: Mild diffuse disc bulging, slightly more pronounced on the right. There is narrowing of the rig ht neural foramen present. C3-4: Mild diffuse disc bulging, slightly more pronounced on the left. Mild left-sided foraminal narr owing. C2-3: Unremarkable. CRANIO-CERVICAL JUNCTION: Unremarkable. BONE MARROW: No significant abnormality. PARASPINAL SOFT TISSUES: No significant abnormality. IMPRESSION: Mild degenerative changes as described above. Right lateralization at C4-5. Mild left lateralization at C3-4. Signer Name: Jeff Eid MD Signed: 06/06/2021 3:22 PM Workstation Name: [id number]
--- NOTE | 2021-06-06 15:30 | Magnetic Resonance Report ---
MRI BRAIN 06/06/2021 INDICATION / CLINICAL INFORMATION: subacute paraplegia. TECHNIQUE: Multiplanar, multisequence MR images of the brain were obtained. COMPARISON: None available. FINDINGS: BRAIN / INTRACRANIAL CONTENTS: Unenhanced and enhanced MR images of the brain were obtained. There is no evidence of acute abnormality. Ventricles and sulci are normal in size and shape for a patient of this age. There is no evidence of acute ischemic injury, hemorrhage, or mass. There are no abnormal extra-axial fluid collections. Some mild chronic white matter T2 weighted hyperintensities are scattered throughout the subcortical and deep white matter of cerebral hemispheres, in a pattern consistent with mild microangiopathic briseyda nge. Postcontrast images demonstrate no abnormal contrast enhancement. EXTRACRANIAL: Unremarkable CRANIOCERVICAL JUNCTION: No significant abnormality. VASCULAR FLOW-VOIDS: No significant abnormality. IMPRESSION: No acute abnormality. Mild chronic appearing microangiopathic change. No abnormal enhancement. Signer Name: Jeff Eid MD Signed: 06/06/2021 3:26 PM Workstation Name: [id number]
[2021-06-06] MEDS: risperiDONE 1 MG TAB PO SCH (21:31)
[2021-06-07] MEDS: cefTRIAXone/NS 2 GM/100 ML 2 GM/100 ML BAG IV SCH (02:34)
[2021-06-07] MEDS: LEVOTHYROXINE 25 MCG TAB PO SCH (05:59)
[2021-06-07] MEDS: METOPROLOL TARTRATE 25 MG TAB PO SCH ×2 (09:30→22:02)
[2021-06-07] MEDS: HEPARIN 5,000 UNIT/1 ML VIAL SUB-Q SCH ×2 (09:31→22:02)
[2021-06-07] MEDS: CALCIUM CARBONATE 1250 MG TAB PO SCH (09:31)
[2021-06-07] MEDS: risperiDONE 3 MG TAB PO SCH (09:31)
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
[2021-06-07] MEDS: risperiDONE 1 MG TAB PO SCH (22:02)
[2021-06-08] MEDS: cefTRIAXone/NS 2 GM/100 ML 2 GM/100 ML BAG IV SCH (00:42)
[2021-06-08] MEDS: LEVOTHYROXINE 25 MCG TAB PO SCH (05:28)
[2021-06-08] MEDS: risperiDONE 3 MG TAB PO SCH (09:59)
[2021-06-08] MEDS: HEPARIN 5,000 UNIT/1 ML VIAL SUB-Q SCH ×2 (10:00→22:10)
[2021-06-08] MEDS: CALCIUM CARBONATE 1250 MG TAB PO SCH (10:00)
[2021-06-08] MEDS: METOPROLOL TARTRATE 25 MG TAB PO SCH ×2 (10:00→22:11)
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
[2021-06-08] MEDS: risperiDONE 1 MG TAB PO SCH (22:10)
[2021-06-09] MEDS: cefTRIAXone/NS 2 GM/100 ML 2 GM/100 ML BAG IV SCH (00:24)
[2021-06-09] MEDS: LEVOTHYROXINE 25 MCG TAB PO SCH (05:23)
[2021-06-09] MEDS: CALCIUM CARBONATE 1250 MG TAB PO SCH (10:30)
[2021-06-09] MEDS: HEPARIN 5,000 UNIT/1 ML VIAL SUB-Q SCH ×2 (10:30→22:29)
[2021-06-09] MEDS: METOPROLOL TARTRATE 25 MG TAB PO SCH ×2 (10:30→22:27)
[2021-06-09] MEDS: risperiDONE 3 MG TAB PO SCH (10:30)
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
[2021-06-09] MEDS: risperiDONE 1 MG TAB PO SCH (22:27)
[2021-06-10] MEDS: LEVOTHYROXINE 25 MCG TAB PO SCH (05:24)
[2021-06-10 05:54] LABS: Basophils % (Auto) 0.6 % (0.0-1.8); Hematocrit 31.9 % (35.5-45.6); Hemoglobin 10.7 gm/dl (11.8-15.2); Lymphocytes # (Auto) 2.2 K/mm3 (1.2-5.4); Lymphocytes % (Auto) 40.8 % (13.4-35.0); Mean Corpuscular HGB Conc 34 % (32-34); Mean Corpuscular Volume 90 fl (84-94); Monocytes # (Auto) 0.6 K/mm3 (0.0-0.8); Monocytes % (Auto) 11.2 % (0.0-7.3); Platelet Count 435 K/mm3 (140-440); Red Blood Count 3.55 M/mm3 (3.65-5.03); Red Cell Distribution Width 19.4 % (13.2-15.2)
[2021-06-10 06:12] LABS: BUN/Creatinine Ratio 20; Blood Urea Nitrogen 4 mg/dL (9-20); Calcium 8.6 mg/dL (8.4-10.2); Hemolysis Index 5
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
[2021-06-10] MEDS: risperiDONE 3 MG TAB PO SCH (10:26)
[2021-06-10] MEDS: METOPROLOL TARTRATE 25 MG TAB PO SCH ×2 (10:26→21:41)
[2021-06-10] MEDS: HEPARIN 5,000 UNIT/1 ML VIAL SUB-Q SCH ×2 (10:26→21:41)
[2021-06-10] MEDS: CALCIUM CARBONATE 1250 MG TAB PO SCH (10:26)
[2021-06-10] MEDS: risperiDONE 1 MG TAB PO SCH (21:40)
[2021-06-11] MEDS: LEVOTHYROXINE 25 MCG TAB PO SCH (05:14)
[2021-06-11 05:38] LABS: Basophils % (Auto) 0.4 % (0.0-1.8); Hemoglobin 10.7 gm/dl (11.8-15.2); Lymphocytes # (Auto) 2.6 K/mm3 (1.2-5.4); Mean Corpuscular HGB Conc 33 % (32-34); Mean Corpuscular Volume 91 fl (84-94); Monocytes # (Auto) 0.8 K/mm3 (0.0-0.8); Platelet Count 420 K/mm3 (140-440); Red Blood Count 3.54 M/mm3 (3.65-5.03); Red Cell Distribution Width 19.1 % (13.2-15.2)
[2021-06-11 05:43] LABS: Blood Urea Nitrogen 6 mg/dL (9-20); Calcium 8.4 mg/dL (8.4-10.2); Hemolysis Index 0
[2021-06-11 06:03] LABS: BUN/Creatinine Ratio 20
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
[2021-06-11] MEDS: CALCIUM CARBONATE 1250 MG TAB PO SCH (09:16)
[2021-06-11] MEDS: HEPARIN 5,000 UNIT/1 ML VIAL SUB-Q SCH ×2 (09:16→23:17)
[2021-06-11] MEDS: risperiDONE 3 MG TAB PO SCH (09:16)
[2021-06-11] MEDS: METOPROLOL TARTRATE 25 MG TAB PO SCH ×2 (09:19→23:18)
[2021-06-11] MEDS: risperiDONE 1 MG TAB PO SCH (23:18)
[2021-06-12] MEDS: LEVOTHYROXINE 25 MCG TAB PO SCH (06:26)
[2021-06-12 06:50] LABS: Basophils % (Auto) 0.5 % (0.0-1.8); Hemoglobin 10.1 gm/dl (11.8-15.2); Lymphocytes # (Auto) 2.5 K/mm3 (1.2-5.4); Mean Corpuscular HGB Conc 33 % (32-34); Mean Corpuscular Volume 90 fl (84-94); Monocytes # (Auto) 0.6 K/mm3 (0.0-0.8); Monocytes % (Auto) 11.5 % (0.0-7.3); Platelet Count 357 K/mm3 (140-440); Red Blood Count 3.43 M/mm3 (3.65-5.03); Red Cell Distribution Width 19.1 % (13.2-15.2)
[2021-06-12 07:08] LABS: Blood Urea Nitrogen 5 mg/dL (9-20); Calcium 8.1 mg/dL (8.4-10.2); Hemolysis Index 0
[2021-06-12 07:10] LABS: BUN/Creatinine Ratio 17
[2021-06-12] MEDS: METOPROLOL TARTRATE 25 MG TAB PO SCH ×2 (10:21→22:59)
[2021-06-12] MEDS: risperiDONE 3 MG TAB PO SCH (10:21)
[2021-06-12] MEDS: CALCIUM CARBONATE 1250 MG TAB PO SCH (10:21)
[2021-06-12] MEDS: HEPARIN 5,000 UNIT/1 ML VIAL SUB-Q SCH ×2 (10:21→23:00)
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
[2021-06-12] MEDS: risperiDONE 1 MG TAB PO SCH (22:59)
[2021-06-13] MEDS: LEVOTHYROXINE 25 MCG TAB PO SCH (05:50)
[2021-06-13] MEDS: METOPROLOL TARTRATE 25 MG TAB PO SCH ×2 (10:13→21:29)
[2021-06-13] MEDS: CALCIUM CARBONATE 1250 MG TAB PO SCH (10:13)
[2021-06-13] MEDS: risperiDONE 3 MG TAB PO SCH (10:13)
[2021-06-13] MEDS: HEPARIN 5,000 UNIT/1 ML VIAL SUB-Q SCH ×2 (10:14→21:29)
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
[2021-06-13] MEDS: risperiDONE 1 MG TAB PO SCH (21:29)
[2021-06-14] MEDS: LEVOTHYROXINE 25 MCG TAB PO SCH (06:20)
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
[2021-06-14] MEDS: risperiDONE 3 MG TAB PO SCH (09:41)
[2021-06-14] MEDS: HEPARIN 5,000 UNIT/1 ML VIAL SUB-Q SCH ×2 (09:41→22:56)
[2021-06-14] MEDS: CALCIUM CARBONATE 1250 MG TAB PO SCH (09:41)
[2021-06-14] MEDS: METOPROLOL TARTRATE 25 MG TAB PO SCH ×2 (09:44→22:56)
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
[2021-06-14] MEDS: risperiDONE 1 MG TAB PO SCH (22:55)
[2021-06-15] MEDS: LEVOTHYROXINE 25 MCG TAB PO SCH (06:16)
[2021-06-15] MEDS: HEPARIN 5,000 UNIT/1 ML VIAL SUB-Q SCH (09:27)
[2021-06-15] MEDS: METOPROLOL TARTRATE 25 MG TAB PO SCH (09:27)
[2021-06-15] MEDS: risperiDONE 3 MG TAB PO SCH (09:28)
[2021-06-15] MEDS: CALCIUM CARBONATE 1250 MG TAB PO SCH (09:28)
[2021-06-15 16:01] VITALS: BP 130/74
== END 2021-06-15 18:23 | DRG 871 ==
LOC: ED 18:46 → 4A 21:55
PROVIDERS: ADMIT Hospitalist; ATTEND Internal Medicine
DX: A41.9 Sepsis, unspecified organism (principal); G92 Toxic encephalopathy; E43 Unspecified severe protein-calorie malnutrition; E87.6 Hypokalemia; G82.20 Paraplegia, unspecified; N39.0 Urinary tract infection, site not specified; E83.51 Hypocalcemia; E03.9 Hypothyroidism, unspecified; Z20.822 Contact with and (suspected) exposure to COVID-19; Z79.899 Other long term (current) drug therapy; Z68.1 Body mass index [BMI] 19.9 or less, adult
CPT/HCPCS: 36415; 70450; 70553; 71045; 72156; 72157; 72158; 80048; 80053; 80320; 81001; 82140; 82550; 82962; 83880; 84439; 84443; 84484; 85025; 85027; 85610; 87040; 87045; 87076; 87086; 87177; 87186; 87493; 87641; 93005; 96360; 96361; G0378; A9575; G0480; J0696; J1644; J1940; J2405; J2426; J3480; J7030; J7042; U0003